=== PATIENT | female | born 1955 | race Caucasian/White ===

== ENCOUNTER 2016-12-17 09:25 | Day surgery (SDC) | payer OTHER ==
[~2016-12-17] VITALS: Ht 162.6 cm; Wt 109.0 kg
[~2016-12-17 09:25] MED LIST: ASCORBIC ACID500 M3 PO; Caltrate 600/400 PO; MAGNESIUM250 MG PO; MULTIPLE VITAM1 EACH PO; POTASSIUM-9999 MG PO; VITAMIN D400 UNIT PO; Vicodin,Norco 5/325 PO
[2016-12-17 09:51] VITALS: BP 138/66
[2016-12-17 10:03] LABS: POINT-OF-CARE METER ID UU14174212
[2016-12-17 14:46] VITALS: BP 134/63
[2016-12-17 15:40] VITALS: BP 164/74
== END 2016-12-17 15:45 | disposition home or self-care (01) ==
LOC: SDC 09:25
PROVIDERS: Surgery
DX: K43.9 Ventral hernia without obstruction or gangrene (principal); I10 Essential (primary) hypertension; E78.5 Hyperlipidemia, unspecified; Z98.84 Bariatric surgery status
CPT/HCPCS: 82948; J0330; J0690; J1170; J1644; J2250; J2405; J3010; S0020